=== PATIENT | male | born 1990 | race Caucasian/White ===

== ENCOUNTER 2023-01-21 12:23 | Emergency (ER) | payer MEDICAID ==
[2023-01-21] MEDS ORDERED: Sodium Chloride 0.9% 10 ML Syringe FLUSH PRN (12:32)
[2023-01-21] MEDS ORDERED: Albuterol/Ipratropium 3.0-0.5 MG/3 ML Neb Soln NEB ONE (12:32)
[2023-01-21] MEDS ORDERED: Sodium Chloride 0.9% 2.5 ML Syringe FLUSH PRN (12:32)
[2023-01-21] MEDS ORDERED: Ondansetron 4 MG Tab.DIS PO ONE (12:32)
[2023-01-21] MEDS ORDERED: Sodium Chloride 0.9% 1,000 ML IV ONE (12:32)
[2023-01-21] MEDS ORDERED: Ondansetron 4 MG/2 ML SDV IVPUSH ONE (12:39)
[2023-01-21 12:53] LABS: BASOPHILS ABSOLUTE AUTO 0.1 K/uL (0.0-0.1); BASOPHILS PERCENT AUTO 0.6 % (0.0-1.5); EOSINOPHILS ABSOLUTE AUTO 0.4 K/uL (0.0-0.7); EOSINOPHILS PERCENT AUTO 4.4 % (0.0-7.0); HEMATOCRIT 43.2 % (38.0-50.0); LYMPHOCYTES ABSOLUTE AUTO 2.2 K/uL (0.6-2.4); LYMPHOCYTES PERCENT AUTO 27.6 % (16.0-40.0); MEAN CORPUSCULAR HEMOGLOBIN 30.4 pg (27.0-32.0); MEAN CORPUSCULAR HGB CONC 34.7 g/dL (31.0-37.0); MEAN CORPUSCULAR VOLUME 87.6 fL (80.0-98.0); MONOCYTES PERCENT AUTO 13.1 % (0.0-15.0); NEUTROPHILS ABSOLUTE AUTO 4.3 K/uL (1.4-5.7); NEUTROPHILS PERCENT AUTO 54.3 % (48.0-80.0); NRBC ABSOLUTE 0 K/uL; PLATELET COUNT,PLT 338 K/uL (150-400); RED BLOOD CELL COUNT 4.93 M/uL (4.50-5.90); WHITE BLOOD CELL COUNT,WBC 7.87 K/uL (4.0-11.0)
[2023-01-21 13:20] LABS: A/G RATIO 1.1 (0.9-1.6); ALBUMIN 3.8 g/dL (3.4-5.0); BILIRUBIN TOTAL 0.5 mg/dL (0.2-1.0); CALCIUM 8.5 mg/dL (8.5-10.1); CARBON DIOXIDE,CO2 27.2 mmol/L (21.0-32.0); EST CRCL DRUG DOSING (CG) 93.96 mL/min; POTASSIUM,K 3.9 mmol/L (3.5-5.1); PROTEIN TOTAL,TP 7.2 g/dL (6.4-8.2)
[2023-01-21] MEDS ORDERED: Sucralfate Suspension 1 GM/10 ML Cup PO ONE (14:10)
[2023-01-21] MEDS ORDERED: Famotidine 20 MG/2 ML SDV IVPUSH ONE (14:10)
[2023-01-21] MEDS ORDERED: Iopamidol 755 Mg/ML 100 ML Bottle IVPUSH ONE (15:57)
[2023-01-21] MEDS ORDERED: Lidocaine 4% 1 each Patch TOP STA (16:21)
== END 2023-01-21 17:23 | disposition home or self-care (01) ==
LOC: MW.ED 12:23
DX: R55 Syncope and collapse (principal); R07.9 Chest pain, unspecified; R20.2 Paresthesia of skin; Z88.5 Allergy status to narcotic agent; Z79.899 Other long term (current) drug therapy
CPT/HCPCS: 36415; 70450; 71046; 74177; 80053; 82550; 83690; 83735; 84443; 84484; 85025; 85379; 93005; 96361; 96374; 96375; 99285; A9270; J2405; J3490; J7030; Q9967; 93010; 99284; J7620-GY